=== PATIENT | female | born 1970 | race Caucasian/White ===

== ENCOUNTER → 2023-07-03 | Outpatient (CLI) | payer OTHER ==
--- NOTE | 2023-07-03 14:09 | CT ---
EXAMINATION TYPE: CT angio chest CT DLP: 749.1 mGycm, Automated exposure control for dose reduction was used. DATE OF EXAM: 07/03/2023 1:51 PM COMPARISON: CT 06/20/2022. CLINICAL INDICATION:Female, 52 years old with history of I71.20 THORACIC AORTIC ANEURYSM; tHORACIC AN EURYSM TECHNIQUE/CONTRAST: CTA scan of the thorax is performed with IV Contrast, patient injected with 100 mL of Isovue 370, MIP images are created and reviewed these are created on a separate workstation.. FINDINGS: Pulmonary Artery: There is no evidence for a filling defect within the pulmonary vasculature to sugge st acute pulmonary embolism. The pulmonary artery is of normal size. Lungs/Pleura: No evidence of focal consolidation, pleural effusion or pneumothorax. Mild centrilobula r emphysema changes are present. Right major and minor fissure intrafissural lymph nodes. Airway: Large airways are patent. Heart: Heart is within normal limits for size. Vasculature: No evidence of aortic aneurysm. Descending thoracic aorta is ectatic up to 4.9 cm. Findi ngs similar to 06/20/2022. No evidence for filling defect to suggest pulmonary embolus. Mediastinum: No gross evidence of adenopathy. Musculoskeletal: No acute osseous abnormalities Soft Tissues: Unremarkable. Lower neck: No significant findings. Upper Abdomen: The gallbladder surgically absent. IMPRESSION: Stable ascending thoracic aorta ectasia up to 4.9 cm.
== END | disposition home or self-care (01) ==
LOC: RADCTMAIN 12:49
PROVIDERS: ATTEND Thoracic Surgery (Cardiothoracic Vascular Surgery)
DX: I71.20 Thoracic aortic aneurysm, without rupture, unspecified (principal)
CPT/HCPCS: 71275; Q9967

== ENCOUNTER → 2024-01-14 | Outpatient (CLI) | payer OTHER ==
--- NOTE | 2024-01-14 13:28 | CT ---
EXAMINATION TYPE: CT angio chest DATE OF EXAM: 01/14/2024 COMPARISON: 07/03/2023 HISTORY: 53-year-old female I71.4 f/u aneurysm TECHNIQUE: Contiguous axial scanning of the chest before and after the administration of 100 mL of Is ovue 300. Coronal/sagittal MIP reconstructions performed. 3-D reconstructions generated on a [employer] workstation. CT DLP: 886.4mGycm. Automatic exposure control utilized for a dose reduction. FINDINGS: Heart normal size without pericardial effusion. Aortic root mildly aneurysmal 4.0 cm versus 3.8 cm, previously. Ascending aorta aneurysmal at 4.8 cm versus 4.9 cm, previously. Conventional arch vessel branching anatomy. Descending thoracic aorta normal caliber with scattered mild episodic calcifications. No thoracic lymphadenopathy by CT size criteria. Lungs show [id number] diffuse bronchial wall thickening suggesting bronchitis. Minimal emphysem atous change no consolidation or pleural effusion. Visualized upper abdomen shows cholecystectomy clips. Bones: Slightly accentuated kyphosis at the thoracolumbar junction. No osseous destructive process. IMPRESSION: Ascending aortic aneurysm is relatively unchanged. Root measures 4.0 cm and ascending portion measure s 4.8 cm (versus 3.8 cm and 4.9 cm, previously, respectively).
== END | disposition home or self-care (01) ==
LOC: RADCTMAIN 11:26
PROVIDERS: ATTEND Internal Medicine Interventional Cardiology
DX: I71.21 Aneurysm of the ascending aorta, without rupture (principal); I71.40 Abdominal aortic aneurysm, without rupture, unspecified
CPT/HCPCS: 71275; Q9967

== ENCOUNTER → 2024-07-03 | Outpatient (CLI) | payer OTHER ==
--- NOTE | 2024-07-28 08:23 | CT ---
Site ID [facility] Patient Dia Dudley A ID [id number] Age/Gender: 53Y, F Order # N/A Procedure CT Angio Chest PE Protocol Date 07/03/2024 11:42:00 AM EXAMINATION TYPE: CT angio chest CT DLP: 808 mGycm, Automated exposure control for dose reduction was used. DATE OF EXAM: 07/09/2024 5:40 PM COMPARISON: CTA chest 06/13/2024, 07/03/2023, CT chest 06/20/2022. CLINICAL INDICATION: Female, Johnny 3 year old with history of thoracic aneurysm. TECHNIQUE/CONTRAST: CTA scan of the thorax is performed before and after the uneventful administration of 100 mL of Isovu e-370 intravenously. MIP images are created and reviewed. FINDINGS: Lungs/Pleura: No evidence of focal consolidation, pleural effusion or pneumothorax. No suspicious pul monary nodule or mass. Airway: Large airways are patent. Mild diffuse bronchial wall thickening suggesting bronchitis. Heart: Heart is within normal limits for size.. No pericardial effusion. Vasculature: Conventional arch vessel branching anatomy. Mild atherosclerotic calcification of the ao rta and its branches. Aortic root is mildly aneurysmal measuring 4.0 cm, previously 4.0 cm. Ascending aorta is aneurysmal measuring 4.8 cm, previously 4.8 cm. Descending thoracic aorta measures up to 2. 2 cm. No evidence for intramural hematoma or dissection. No evidence of pulmonary embolism. Mediastinum: No gross evidence of adenopathy. Musculoskeletal: No acute osseous abnormalities. Slightly accentuated kyphosis at the thoracolumbar j unction. Soft Tissues: Unremarkable. Lower neck: No significant findings. Upper Abdomen: Postcholecystectomy changes.. IMPRESSION: Stable aneurysmal dilatation of the ascending thoracic aorta and aortic root.
== END | disposition home or self-care (01) ==
LOC: RADCTMAIN 11:08
PROVIDERS: ATTEND Thoracic Surgery (Cardiothoracic Vascular Surgery)
DX: I71.21 Aneurysm of the ascending aorta, without rupture (principal)
CPT/HCPCS: 71275; Q9967

== ENCOUNTER → 2025-01-19 | Outpatient (CLI) | payer OTHER ==
--- NOTE | 2025-01-19 12:08 | CT ---
EXAMINATION TYPE: CT angio chest CT DLP: 769 mGycm, Automated exposure control for dose reduction was used. DATE OF EXAM: 01/19/2025 11:51 AM COMPARISON: Multiple CTA Chest with most recent 07/26/2024. CLINICAL INDICATION:Female, 54 years old with history of I71.2 thoracic aneurysm; thoracic aneurysm TECHNIQUE/CONTRAST: CTA scan of the thorax is performed with IV Contrast, patient injected with 100 mL of Isovue 370. 3D reconstructed images are created on an independent workstation and reviewed.. Lungs/Pleura: No evidence of focal consolidation, pleural effusion or pneumothorax. No suspicious pul monary nodule or mass. Airway: Large airways are patent. Mild diffuse bronchial wall thickening suggesting bronchitis. Heart: Heart is within normal limits for size.. No pericardial effusion. Vasculature: Conventional arch vessel branching anatomy. Mild atherosclerotic calcification of the ao rta and its branches. Aortic root is mildly aneurysmal measuring 4.1 cm, previously 4.0 cm. Ascending aorta is aneurysmal measuring 5.0 cm, previously 4.8 cm. Descending thoracic aorta measures up to 2. 2 cm. Previously measured 2.0 cm. No evidence for intramural hematoma or dissection. No evidence of p ulmonary embolism. Mediastinum: No evidence of adenopathy. Musculoskeletal: No acute osseous abnormalities. Slightly accentuated kyphosis at the thoracolumbar j unction. Soft Tissues: Unremarkable. Lower neck: No significant findings. Upper Abdomen: Postcholecystectomy changes.. IMPRESSION: Marginal increase in size of ascending thoracic aortic and aortic root aneurysms measuring 5.0 and 4. 1 cm respectively. [facility], , 01/19/2025 12:06 PM
== END | disposition home or self-care (01) ==
LOC: RADCTMAIN 10:18
PROVIDERS: ATTEND Thoracic Surgery (Cardiothoracic Vascular Surgery)
DX: I71.21 Aneurysm of the ascending aorta, without rupture (principal)
CPT/HCPCS: 71275; Q9967